=== PATIENT | female | born 1935 | race Caucasian/White ===

== ENCOUNTER → 2017-04-14 | Outpatient (CLI) | payer MEDICARE, OTHER ==
[~2017-04-14] MED LIST: ACCUPRIL5 MG PO; ACETAMINOPHEN325 M2 PO; ALBUTEROL2.5 MG/0.5 INH; ARICEPT10 MG PO; ASPIRIN ADULT L81 M1 PO; AVPAK AZITHROM250 M1 PO; BACTRIM DS 8001 TA1 PO; BENADRYL25 M1 PO; BISCOLAX5 MG PO; CALCIUM CARB500 MG PO; COUMADIN5 M2 PO; DIFLUCAN100 MG PO; DOCUPRENE100 M1 PO; DULCOLAX10 MG R; DULCOLAX10 MG RC; DULCOLAX5 MG PO; DUONEB 3 MG/3 ML3 M1 INH; DUONEB 3 MG/3 ML3 M1 NEB; FLEET ADULT ENEM1 EA R; FOSAMAX70 MG PO; FUROSEMIDE40 MG PO; GLUCOPHAGE500 MG PO; GUAIFENESIN DM118 ML PO; HUMALOG100 U/ML SC; K + POTASSIUM20 MEQ PO; KEFLEX500 MG PO; LASIX20 MG PO; LASIX40 MG PO; LEVOFLOXACIN500 MG PO; LISINOPRIL5 MG PO; LOPERAMIDE1 MG/5 ML PO; LOPRESSOR25 MG PO; MEDROL DOSEPAK4 MG PO; MIRALAX17 GM/DOSE PO; MOM30 M1 PO; MOM30 ML PO; MULTIPLE VITAMI1 CAP PO; MULTIPLE VITAMI1 TA3 PO; NAMENDA-28 PO; NEURONTIN100 MG PO; NON-ASPIRIN325 MG PO; OCUVITE1 TA1 PO; OCUVITE1 TAB PO; OSCAL,OYSTER S500 MG PO; OSCAL/D,OYSTER250 MG PO; PYRIDIUM200 MG PO; TYLENOL325 M1 PO; VIBRAMYCIN100 MG PO; VICODIN 500 MG-1 TAB PO; VITAMIN D32000 I1 PO; VITAMIN D50000 I2 PO; [UNRECOGNIZED DRUG - OTHER] PO; [UNRECOGNIZED DRUG - OTHER] PO
[2017-04-14 10:07] LABS: CREATININE 1.13 mg/dL (0.55-1.02)
== END | disposition home or self-care (01) ==
LOC: CT 09:00
PROVIDERS: Radiology Diagnostic Radiology
DX: J43.9 Emphysema, unspecified (principal); R91.8 Other nonspecific abnormal finding of lung field; I25.10 Atherosclerotic heart disease of native coronary artery without angina pectoris

== ENCOUNTER 2017-08-22 11:33 | Emergency (ER) | payer MEDICARE, OTHER ==
[~2017-08-22] VITALS: Wt 68.0 kg
[2017-08-22 11:45] LABS: BILIRUBIN NEGATIVE (NEGATIVE); BLOOD NEGATIVE (NEGATIVE); CLARITY CLOUDY (CLEAR); COLOR YELLOW (YELLOW); GLUCOSE NEGATIVE (NEGATIVE); KETONE NEGATIVE (NEGATIVE); LEUKO ESTERASE NEGATIVE (NEGATIVE); NITRITE POSITIVE (NEGATIVE); PH 5.5 (5.0-9.0); UROBILINOGEN 0.2 E.U./dl (0.2-1.0)
[2017-08-22 11:55] LABS: BACTERIA 4+
[2017-08-22 12:07] LABS: BASO % 0.4 % (0.0-1.0); EOS # 0.2 10*3/uL (0.0-0.4); HEMATOCRIT 43.3 % (37.0-47.0); HEMOGLOBIN 13.3 g/dl (12.0-16.0); LYMPH # 2.1 10*3/uL (1.3-4.4); LYMPH % 38.8 % (27.0-41.0); MEAN CELL VOLUME 92.5 fl (81.0-99.0); MEAN CORPUSCULAR HGB 28.4 pg (27.0-31.0); MEAN CORPUSCULAR HGB CONC 30.7 g/dl (33.0-37.0); MEAN PLATELET VOLUME 11.1 fl (9.6-12.3); MONO # 0.5 10*3/uL (0.1-1.0); MONO % 9.6 % (3.0-9.0); NEUT # 2.5 10*3/uL (2.3-7.9); PLATELET COUNT AUTOMATED 208 10*3/uL (130-400); RED BLOOD COUNT 4.68 10*6/uL (4.10-5.10); RED CELL DISTRI WIDTH 13.7 % (0-14.5); WHITE BLOOD COUNT 5.3 10*3/uL (4.8-10.8)
[2017-08-22 12:28] LABS: ALKALINE PHOSPHATASE 39 U/L (45-117); BUN 24 mg/dl (7-24); CHLORIDE 105 mmol/L (98-107); CREATININE 1.02 mg/dL (0.55-1.02); POTASSIUM 4.6 mmol/L (3.5-5.1); SGOT/AST 14 IU/L (3-35); SGPT/ALT 10 U/L (12-78); SODIUM 139 mmol/L (136-145); TOTAL PROTEIN 6.9 gm/dL (6.4-8.2)
[2017-08-22] MEDS ORDERED: LEVAQUIN250 M1 PO (13:21)
== END 2017-08-22 14:31 | disposition home or self-care (01) ==
LOC: ED 11:33
PROVIDERS: Emergency Medicine
DX: N39.0 Urinary tract infection, site not specified (principal); I48.91 Unspecified atrial fibrillation; I13.0 Hypertensive heart and chronic kidney disease with heart failure and stage 1 through stage 4 chronic kidney disease, or unspecified chronic kidney disease; N18.9 Chronic kidney disease, unspecified; I50.9 Heart failure, unspecified; E78.5 Hyperlipidemia, unspecified; Z98.890 Other specified postprocedural states; Z87.01 Personal history of pneumonia (recurrent); Z79.899 Other long term (current) drug therapy; Z86.73 Personal history of transient ischemic attack (TIA), and cerebral infarction without residual deficits; Z88.0 Allergy status to penicillin; Z88.6 Allergy status to analgesic agent; Z88.8 Allergy status to other drugs, medicaments and biological substances; Z79.01 Long term (current) use of anticoagulants; Z79.82 Long term (current) use of aspirin

== ENCOUNTER 2017-11-26 05:42 | Inpatient (IN) | payer MEDICARE, OTHER ==
[~2017-11-26] VITALS: Ht 152.4 cm
--- NOTE | ~2017-11-26 | PR ---
[place], [place] PROGRESS NOTE NAME: SIMEON JO UNIT #: [id number] ROOM: 419 DOCTOR: CHRIS SNDYER MD BIRTHDATE: [birth year] DOS: 11/27/2017 REASON FOR VISIT: The patient with elevated troponin and PVCs. SUBJECTIVE: The patient is feeling better. Denies any chest pain or shortness of breath. She wanted to go home. No acute distress. No palpitation or dizziness. No syncope. REVIEW OF SYSTEMS: Negative except as described above. RHYTHM STRIPS: The patient was off the monitor. PHYSICAL EXAMINATION: VITAL SIGNS: Blood pressure 114/40, pulse 52, respiratory rate was 20. GENERAL: Alert, no acute distress. HEAD AND NECK: Pupils are round and equal. Tongue was moist. NECK: Supple, no distended neck veins. No carotid bruit. CHEST: Nontender. LUNGS: Clear to auscultation bilaterally. HEART: Slightly irregular. No S3, grade 1-2/6 systolic murmur. ABDOMEN: Bowel sounds normal. EXTREMITIES: Showed edema. Distal pulses are palpable. SKIN: Warm and dry. No cyanosis, no clubbing. NEUROLOGIC: The patient is alert, oriented. RECTAL: Deferred. MEDICATIONS AND ALLERGIES: Reviewed. IMPRESSION: 1. Borderline elevation of troponin with no chest pains. 2. History of cardiomyopathy. 3. Valvular heart disease. 4. History of left ventricular apical thrombus. 5. Paroxysmal atrial fibrillation. 6. Sinus bradycardia. 7. Hypertension. 8. History of cerebrovascular accident. RECOMMENDATIONS: 1. Resume her cardiac medications, but however, lower dose of beta blockers and monitor her blood pressure and heart rates. 2. Resume her Eliquis for atrial fibrillation and history of apical thrombus. 3. Resume her marie inhibitors and monitor blood pressure and heart rates. There is no family at bedside at the time of my examination. 4. We will follow up with [facility] if the patient and her family desires. [place], [place] PROGRESS NOTE NAME: SIMEON JO UNIT #: [id number] ROOM: 419 DOCTOR: CHRIS SNYDER MD BIRTHDATE: [birth year] CHRIS SNYDER MD CM:ROSA [id number] CHRIS SNYDER MD 11/28/17 1936 interface
[~2017-11-26 05:42] MED LIST changes: +LEVAQUIN250 M1 PO
[2017-11-26 05:43] VITALS: BP 162/107
[2017-11-26 06:00] LABS: BASO % 0.4 % (0.0-1.0); EOS % 0.2 % (1.0-4.0); HEMATOCRIT 40.3 % (37.0-47.0); HEMOGLOBIN 12.6 g/dl (12.0-16.0); LYMPH % 11.9 % (27.0-41.0); MEAN CELL VOLUME 92.6 fl (81.0-99.0); MEAN CORPUSCULAR HGB CONC 31.3 g/dl (33.0-37.0); MEAN PLATELET VOLUME 11.2 fl (9.6-12.3); MONO # 0.6 10*3/uL (0.1-1.0); MONO % 6.8 % (3.0-9.0); NEUT # 6.8 10*3/uL (2.3-7.9); NEUT % 80.6 % (47.0-73.0); PLATELET COUNT AUTOMATED 226 10*3/uL (130-400); RED BLOOD COUNT 4.35 10*6/uL (4.10-5.10); RED CELL DISTRI WIDTH 15.2 % (0-14.5); WHITE BLOOD COUNT 8.4 10*3/uL (4.8-10.8)
[2017-11-26 06:15] LABS: ACT PARTIAL THROMBO TIME 24.6 SECONDS (20.8-31.5)
[2017-11-26 06:16] LABS: ALBUMIN 3.1 gm/dl (3.1-4.5); ALKALINE PHOSPHATASE 38 U/L (45-117); BUN 22 mg/dl (7-24); CHLORIDE 110 mmol/L (98-107); CREATININE 0.81 mg/dL (0.55-1.02); POTASSIUM 3.9 mmol/L (3.5-5.1); SGOT/AST 12 IU/L (3-35); SGPT/ALT 10 U/L (12-78); SODIUM 143 mmol/L (136-145); TOTAL PROTEIN 6.5 gm/dL (6.4-8.2)
[2017-11-26 06:17] LABS: TROPONIN I 0.202 ng/ml (<0.045)
[2017-11-26 06:55] VITALS: BP 129/55
[2017-11-26 08:20] VITALS: BP 132/75
[2017-11-26] MEDS ORDERED: ELIQUIS2.5 M1 PO (08:20)
[2017-11-26] MEDS ORDERED: LASIX40 MG PO (08:21)
[2017-11-26] MEDS ORDERED: LISINOPRIL5 MG PO (08:23)
[2017-11-26 12:00] VITALS: BP 121/78
[2017-11-26 15:46] VITALS: BP 128/97
[2017-11-26 20:00] VITALS: BP 132/66
[2017-11-27 08:00] VITALS: BP 114/40
[2017-11-27 09:59] LABS: BASO % 0.8 % (0.0-1.0); EOS # 0.2 10*3/uL (0.0-0.4); EOS % 2.9 % (1.0-4.0); HEMATOCRIT 39.2 % (37.0-47.0); HEMOGLOBIN 12.1 g/dl (12.0-16.0); LYMPH # 1.7 10*3/uL (1.3-4.4); LYMPH % 33.6 % (27.0-41.0); MEAN CELL VOLUME 92.7 fl (81.0-99.0); MEAN CORPUSCULAR HGB 28.6 pg (27.0-31.0); MEAN CORPUSCULAR HGB CONC 30.9 g/dl (33.0-37.0); MEAN PLATELET VOLUME 10.9 fl (9.6-12.3); MONO # 0.6 10*3/uL (0.1-1.0); NEUT # 2.6 10*3/uL (2.3-7.9); NEUT % 50.5 % (47.0-73.0); PLATELET COUNT AUTOMATED 199 10*3/uL (130-400); RED BLOOD COUNT 4.23 10*6/uL (4.10-5.10); RED CELL DISTRI WIDTH 15.1 % (0-14.5); WHITE BLOOD COUNT 5.1 10*3/uL (4.8-10.8)
[2017-11-27 10:16] LABS: BUN 19 mg/dl (7-24); CHLORIDE 110 mmol/L (98-107); CHOLESTEROL 131 mg/dL (<200); CREATININE 0.81 mg/dL (0.55-1.02); HDL CHOLESTEROL 51 mg/dl (40-60); LDL CHOLESTEROL 65 mg/dL (9-159); PHOSPHOROUS 2.6 mg/dL (2.5-4.9); POTASSIUM 4.2 mmol/L (3.5-5.1); SODIUM 143 mmol/L (136-145); TRIGLYCERIDES 76 mg/dl (<150); VLDL CHOLESTEROL 15 mg/dL (6-40)
[2017-11-27 10:24] LABS: FREE T4 1.11 ng/dl (0.76-1.46); THYROID STIM HORMONE (HS) 0.797 uIU/ml (0.358-4.75)
[2017-11-27 13:36] LABS: VITAMIN D, 25-HYDROXY 40.8 ng/mL (30-100)
== END 2017-11-27 13:06 | DRG 378 ==
LOC: ED 05:42 → EDHOLD 06:55 → 4E 06:55
PROVIDERS: Family Medicine; Student in an Organized Health Care Education/Training Program
DX: K92.0 Hematemesis (principal); I42.9 Cardiomyopathy, unspecified; I50.42 Chronic combined systolic (congestive) and diastolic (congestive) heart failure; I48.0 Paroxysmal atrial fibrillation; I13.0 Hypertensive heart and chronic kidney disease with heart failure and stage 1 through stage 4 chronic kidney disease, or unspecified chronic kidney disease; L97.119 Non-pressure chronic ulcer of right thigh with unspecified severity; I49.9 Cardiac arrhythmia, unspecified; N18.3 Chronic kidney disease, stage 3 (moderate); F03.90 Unspecified dementia, unspecified severity, without behavioral disturbance, psychotic disturbance, mood disturbance, and anxiety; R74.8 Abnormal levels of other serum enzymes; E78.5 Hyperlipidemia, unspecified; R74.0 Nonspecific elevation of levels of transaminase and lactic acid dehydrogenase [LDH]; J40 Bronchitis, not specified as acute or chronic; Z88.0 Allergy status to penicillin; Z88.8 Allergy status to other drugs, medicaments and biological substances; Z79.82 Long term (current) use of aspirin; Z79.01 Long term (current) use of anticoagulants; Z79.899 Other long term (current) drug therapy; Z86.73 Personal history of transient ischemic attack (TIA), and cerebral infarction without residual deficits; Z87.440 Personal history of urinary (tract) infections; Z87.01 Personal history of pneumonia (recurrent); Z98.49 Cataract extraction status, unspecified eye; Z82.3 Family history of stroke

== ENCOUNTER 2019-01-27 06:21 | Emergency (ER) | payer MEDICARE, OTHER ==
[~2019-01-27 06:21] MED LIST changes: +DIVALPROEX SOD250 MG PO; +ELIQUIS2.5 M1 PO; +MIRALAX17 GM PO; -MIRALAX17 GM/DOSE PO; +NAMENDA-5 PO; +RIVASTIGMINE1 EAC1 T; +[UNRECOGNIZED DRUG - OTHER] PO
== END 2019-01-27 10:48 | disposition expired ==
LOC: ED 06:21
DX: I46.9 Cardiac arrest, cause unspecified (principal); Z87.891 Personal history of nicotine dependence; Z79.899 Other long term (current) drug therapy; Z88.0 Allergy status to penicillin; Z88.8 Allergy status to other drugs, medicaments and biological substances